=== PATIENT | female | born 1975 | race Caucasian/White ===

== ENCOUNTER 2019-11-08 03:47 | Inpatient (IN) | payer BC ==
[2019-11-08] VITALS (23 sets, daily range): BP systolic 108–240; BP diastolic 70–130; BMI 41.1
[~2019-11-08] VITALS: Ht 152.4 cm; Wt 95.3 kg
[2019-11-08] MEDS ORDERED: PLAVIX75 MG PO (03:54)
[2019-11-08] MEDS ORDERED: LIPITOR40 MG PO (03:54)
[2019-11-08 04:18] LABS: BASOPHILS 0.3 % (0-2); EOSINOPHILS 2.4 % (0-7); HEMATOCRIT 44.8 % (36.0-48.0); IMMATURE GRANULOCYTES 0.2 % (0-5); LYMPHOCYTES 30.5 % (15-50); MCH 31.6 pg (26.0-34.0); MCHC 33.5 g/dL (31.0-37.0); MCV 94.5 fL (80.0-100.0); MEAN PLATELET VOLUME 10.8 fL (7.4-10.4); MONOCYTES 5.5 % (2-11); NEUTROPHILS 61.1 % (40-80); PLATELET COUNT 337 10x3/uL (130-400); RBC 4.74 10x6/uL (4.00-5.40); WBC 16.5 10x3/uL (4.8-10.8)
[2019-11-08 04:28] LABS: CALC OSMOLALITY 274 mosm/kg (275-300); CARBON DIOXIDE 23.7 mmol/L (21.0-32.0); CHLORIDE - SERUM 102 mmol/L (98-107); GLUCOSE 169 mg/dL (74-106); POTASSIUM - SERUM 3.2 mmol/L (3.5-5.1); SODIUM 136 mmol/L (136-145); UREA NITROGEN 11 mg/dL (7-18); eGFR NON AFRICAN AMERICAN 64 mL/min (90-120)
[2019-11-08 04:37] LABS: ALBUMIN 3.8 g/dL (3.4-5.0); ALKALINE PHOSPHATASE 129 U/L (30-120); ALT (SGPT) 73 U/L (10-68); BILIRUBIN - TOTAL 0.31 mg/dL (0.2-1.3); PROTEIN - SERUM 8.2 g/dL (6.4-8.2); TROPONIN-I < 0.017 ng/mL (0.000-0.060)
[2019-11-08 05:18] LABS: BILIRUBIN NEGATIVE (NEGATIVE); GLUCOSE 50 mg/dL (NEGATIVE); HCG URINE NEGATIVE (NEGATIVE); KETONE NEGATIVE (NEGATIVE); NITRITE NEGATIVE (NEGATIVE); UROBILINOGEN NORMAL (NORMAL)
--- NOTE | 2019-11-08 07:32 | NUR ---
REPORT CALLED TO BRISEIDA GIMENEZ
--- NOTE | 2019-11-08 07:33 | NUR ---
THIS RN CALLED REPORT TO BRISEIDA GIMENEZ
--- NOTE | 2019-11-08 12:54 | NUR ---
0815 PT ARRIVED TO ROOM 2313 DROPPLET ISOLATION PLACED ON PT AND ROM PT IS PUI PROPER PPE WORN BY STAFF ADMIT PERFORMED WEARING BPAP 50% O2 SAT 100% ADMIT ASSESSMENT AND HISTORY COMPLETE
--- NOTE | 2019-11-08 13:01 | NUR ---
1015 DR MCCLAIN AND NEO BOTH ON UNIT WRITTING ORDERS
--- NOTE | 2019-11-08 13:17 | NUR ---
[address] CHOUDHURY OFFICE FOR ELEVATED BNP
[2019-11-08 14:53] LABS: CKMB 0.9 U/L (0.0-3.6); CREATINE KINASE 75 UL (21-215)
[2019-11-08 14:59] LABS: TROPONIN-I < 0.017 ng/mL (0.000-0.060)
[2019-11-08 18:38] LABS: CKMB 0.8 U/L (0.0-3.6); CREATINE KINASE 68 UL (21-215)
[2019-11-08 18:49] LABS: TROPONIN-I < 0.017 ng/mL (0.000-0.060)
--- NOTE | 2019-11-08 21:18 | NUR ---
BS WAS 125. PER SS NO INSULIN ADMINISTERED.
[2019-11-09 01:34] LABS: CKMB 0.9 U/L (0.0-3.6); CREATINE KINASE 60 UL (21-215); TROPONIN-I < 0.017 ng/mL (0.000-0.060)
--- NOTE | 2019-11-09 02:13 | NUR ---
REPORT CALLED TO MIGUEL ANDRADE LPN. PT TRANSFERRING TO ROOM 2216.
[2019-11-09 02:30] VITALS: BP 144/90
[2019-11-09 04:58] LABS: BASOPHILS 0.2 % (0-2); EOSINOPHILS 2.7 % (0-7); HEMATOCRIT 37.7 % (36.0-48.0); HEMOGLOBIN 12.5 g/dL (12-16); IMMATURE GRANULOCYTES 0.2 % (0-5); LYMPHOCYTES 26.3 % (15-50); MCH 31.6 pg (26.0-34.0); MCHC 33.2 g/dL (31.0-37.0); MCV 95.4 fL (80.0-100.0); MEAN PLATELET VOLUME 10.7 fL (7.4-10.4); MONOCYTES 5.4 % (2-11); NEUTROPHILS 65.2 % (40-80); RBC 3.95 10x6/uL (4.00-5.40)
[2019-11-09 05:12] LABS: PLATELET COUNT 246 10x3/uL (130-400); WBC 10.4 10x3/uL (4.8-10.8)
[2019-11-09 05:25] LABS: ANION GAP 10.3 mmol/L (8-16); CALCIUM 8.6 mg/dL (8.5-10.1); CARBON DIOXIDE 28.9 mmol/L (21.0-32.0)
[2019-11-09 05:29] LABS: POTASSIUM - SERUM 3.2 mmol/L (3.5-5.1)
--- NOTE | 2019-11-09 06:11 | NUR ---
PT K+ IS LOW THIS MORNING AT 3.2, ADMINISTER K+ PER EP, SCHEDULE REDRAW, NO OTHER NEEDS AT THIS TIME, CONTINUE WITH PLAN OF CARE
[2019-11-09 08:00] VITALS: BP 140/82
--- NOTE | 2019-11-09 09:30 | NUR ---
PT SITTING UP IN BED A&O X4. PIV IN LEFT AC, PATENT, NO REDNESS OR SWELLING. O2 VIA NC AT 4L, SAT 99%. WAGONER CATHETER IN PLACE, PATENT, STATLOCK SECURE, YELLOW, CLEAR URINE. PT HAS BIPAP IN ROOM ON STANDBY. PT STATES THAT SHE HAS A CPAP AT HOME THAT SHE DOES NOT USE APPROPRIATLEY. PT ABLE TO AMBULATE WITHOUT ASSIST. ELECTROLYTE PROTOCOL, K+ REDRAW AT 10OO. PT DENIES PAIN. DENIES FURTHER NEEDS. EDUCATED ON CL, VERBALIZED UNDERSTANDING. BED LOW, RAILS X2. CL IN REACH. WILL CONTINUE TO MONITOR.
--- NOTE | 2019-11-09 11:41 | NUR ---
REMOVED WAGONER CATHETER PER ORDER. REMOVED 10ML FROM BALLOON. TIP INTACT. PT TOLERATED WELL. DISCARDED 100ML CLEAR, YELLOW URINE. BED LOW, RAILS X2. CL IN REACH. PT DENIES FURTHER NEEDS.
[2019-11-09 12:00] VITALS: BP 147/83
[2019-11-09 12:09] LABS: UDS - AMPHET NEGATIVE QUAL (NEGATIVE); UDS - BARB NEGATIVE QUAL (NEGATIVE); UDS - BENZO NEGATIVE QUAL (NEGATIVE); UDS - COCAINE NEGATIVE QUAL (NEGATIVE); UDS - OPIATE NEGATIVE QUAL (NEGATIVE); UDS - PCP NEGATIVE QUAL (NEGATIVE); UDS - THC NEGATIVE QUAL (NEGATIVE)
[2019-11-09 12:10] LABS: HEPATITIS C ANTIBODY 0.2 S/CO RAT (0.0-0.9)
[2019-11-09 13:31] VITALS: Ht 152.4 cm; Wt 95.3 kg
--- NOTE | 2019-11-09 14:30 | NUR ---
DISCONNECTED PT FROM IV FOR SHOWER. PT VOIDED 300 ML, CLEAR, YELLOW URINE. DENIES FURTHER NEEDS. WILL CONTINUE TO MONITOR.
[2019-11-09 16:00] VITALS: BP 129/80
[2019-11-09 20:00] VITALS: BP 117/59
--- NOTE | 2019-11-09 23:00 | NUR ---
RESTING WITH EYES CLOSED. RESPIRATIONS EVEN AND UNLABORED. NO SIGNS OR SYMPTOMS OF DISTRESS. WEARING CANNULA AT 2L. CALL LIGHT CLOSE TO PATIENT. CPOC.
[2019-11-10] VITALS: BP 145/84
[2019-11-10 04:00] VITALS: BP 136/74
[2019-11-10 05:54] LABS: BASOPHILS 0.4 % (0-2); EOSINOPHILS 2.9 % (0-7); HEMOGLOBIN 13.8 g/dL (12-16); IMMATURE GRANULOCYTES 0.2 % (0-5); MCH 31.3 pg (26.0-34.0); MCHC 32.9 g/dL (31.0-37.0); MCV 95.2 fL (80.0-100.0); MONOCYTES 5.4 % (2-11); NEUTROPHILS 63.1 % (40-80); PLATELET COUNT 291 10x3/uL (130-400); RBC 4.41 10x6/uL (4.00-5.40); RDW 15.4 % (11.5-14.5); WBC 10.6 10x3/uL (4.8-10.8)
[2019-11-10 06:28] LABS: ANION GAP 11.7 mmol/L (8-16); CALCIUM 9.4 mg/dL (8.5-10.1); CARBON DIOXIDE 28.5 mmol/L (21.0-32.0); POTASSIUM - SERUM 3.2 mmol/L (3.5-5.1)
--- NOTE | 2019-11-10 08:15 | NUR ---
PATIENT IN BED WITH IV INTACT. NO COMPLAINTS OR SIGNS OF DISTRESS. CALL LIGHT WITHIN REACH.
[2019-11-10 10:59] VITALS: BP 154/86
[2019-11-10] MEDS ORDERED: NICODERM CQ1 EAC3 TRANSDERM (11:22)
[2019-11-10] MEDS ORDERED: AZITHROMYCIN500 MG PO (11:23)
[2019-11-10] MEDS ORDERED: LASIX20 MG PO (11:23)
[2019-11-10] MEDS ORDERED: K-TAB10 MEQ PO (11:24)
[2019-11-10] MEDS ORDERED: ALBUTEROL SULF8.5 GM INH (11:24)
--- NOTE | 2019-11-10 13:10 | NUR ---
PATIENT RECIEVED DC INSTRUCTIONS. VERBALIZED UNDERSTANDING. NO QUESTIONS AT THIS TIME. PRESCRIPTIONS GIVEN TO PATIENT. IV REMOVED WITH CATH TIP INTACT. CALL LIGHT WITHIN REACH.
[2019-11-10 13:16] VITALS: BP 153/80
--- NOTE | 2019-11-10 13:34 | NUR ---
PATIENT RECIEVED INFORMATION ABOUT AORTIC ANEURYSM, CHF, AND RESP FAILURE AT THIS TIME. ALSO INFO ON HTN.
--- NOTE | 2019-11-10 13:40 | NUR ---
PATIENT AMBULATED OUT OF HOSPITAL WITH RN TO PRIVATE VEHICLE WITH PERSONAL BELONGINGS. REFUSED WC AT THIS TIME.
--- NOTE | 2019-11-10 15:26 | EC ---
PATIENT:NURIS DONIS DATE OF SERVICE: 11/08/19 SEX: F MEDICAL RECORD: [id number] DATE OF : 77 LOCATION:[facility] AGE OF PATIENT: 44 ADMISSION DATE: 11/08/19 REFERRING PHYSICIAN: INTERPRETING PHYSICIAN: HILLARY CHOUDHURY MD ECHOCARDIOGRAM REPORT ECHO CHARGES 4 ECHO COMPLETE Date: 11/08/19 CLINICAL DIAGNOSIS: PULMONARY, EDEMA ECHOCARDIOGRAPHIC MEASUREMENTS (adult normal given) AC root (d.<3.7cm) 3.4 cm LV Septum d (<1.2 cm> 1.1 cm Valve Excursion 1.4 cm LV Septum (systole) 1.3 cm Left Atria (s.<4.0cm> 2.8 cm LVPW d(<1.2cm) 0.7 cm RV (d.<2.3cm) 2.2 cm LVPW (sytole) 1.3 cm LV diastole(<5.6CM) 6.1 cm MV E-F(>70mm/sec) cm LV systole 4.9 cm LVOT Diameter 1.8 cm MV exc.(>10mm) cm Est.ejection fraction (50-75%) % DOPPLER: LVIT cm/sec A 120 cm/sec E 110 cm/sec LA cm/sec RVSP 26.4 mmHg LVOT 115 cm/sec AOP1/2T m/s Asc. Ao 121 cm/sec RVOT 59 cm/sec RA cm/sec PA 86 cm/sec AV Gradient Peak 5.8 mmHg AV Mean 3.0 mmHg AV Area 2.5 cm MV Gradient Peak 5.9 mmHg MV Mean 3.8 mmHg MV Area cm COMMENTS: Zoology Professor: Norberto FREGOSO Shank Sander: 3 Dr. Marino TAPE# PACS Pericardial Effusion N DATE OF SERVICE: Adequate 2D, color flow imaging, spectral Doppler, and M-Mode No LVH. LV internal dimension is normal. Wall motion is normal. EF is greater than or equal to 55%. Aortic valve is tricuspid. No evidence of stenosis by Doppler interrogation. Trivial AI by color-flow imaging. Left atrium is normal at 2.8 cm. Mitral valve shows no prolapse. Mild MR. Right-sided chambers are grossly normal. Trace TR. ECHOCARDIOGRAM REPORT [id number] NURIS DONIS TRANSINT:[id number] Voice Confirmation ID: [id number] DOCUMENT ID: [id number] HILLARY CHOUDHURY MD at 1526 CC: [id number] DICTATION DATE: 11/08/19 1511 SAFETY COMPANION: 11/08/19 1535 DIS IN 11/10/19 [place] [id number] [place] [id number]
== END 2019-11-10 13:45 | disposition home or self-care (01) | DRG 291 ==
LOC: D.ER 03:47 → D.MS 07:11 → D.ICU 07:11 → D.MS 11-09 02:38
PROVIDERS: Emergency Medicine; Family Medicine; ADMIT Emergency Medicine; ATTEND Emergency Medicine
PROC: 5A09357 Assistance with Respiratory Ventilation, Less than 24 Consecutive Hours, Continuous Positive Airway Pressure (ICD-10-PCS; principal; 2019-11-08)
DX: I11.0 Hypertensive heart disease with heart failure (principal); I50.31 Acute diastolic (congestive) heart failure; J96.01 Acute respiratory failure with hypoxia; I67.5 Moyamoya disease; J81.1 Chronic pulmonary edema; I16.0 Hypertensive urgency; G47.33 Obstructive sleep apnea (adult) (pediatric); F17.200 Nicotine dependence, unspecified, uncomplicated; I71.4 Abdominal aortic aneurysm, without rupture; E78.5 Hyperlipidemia, unspecified; E11.9 Type 2 diabetes mellitus without complications; Z91.19 Patient's noncompliance with other medical treatment and regimen